=== PATIENT | male | born 1985 | race Caucasian/White ===

== ENCOUNTER 2018-06-01 05:45 | Observation (INO) | payer OTHER ==
[2018-06-01] MEDS ORDERED: CEFAZOLIN 1 GM INJ (07:00)
[2018-06-01] MEDS ORDERED: GLYCOPYRROLATE 0.4 MG INJ (07:00)
[2018-06-01] MEDS ORDERED: NEOSTIGMINE 3 MG/3 ML SYRINGE (07:00)
[2018-06-01] MEDS ORDERED: ROCURONIUM 50 MG INJ (07:56)
[2018-06-01] MEDS ORDERED: LIDOCAINE 100 MG SYRINGE (07:56)
[2018-06-01] MEDS ORDERED: PHENYLephrine (100 MCG/ML) 5ML SYG (07:56)
[2018-06-01] MEDS ORDERED: MIDAZOLAM 1 MG/ML 2 ML INJ (07:56)
[2018-06-01] MEDS ORDERED: PROPOFOL 100 ML (07:56)
[2018-06-01] MEDS ORDERED: DEXAMETHASONE 4 MG/ML 1 ML INJ (07:56)
[2018-06-01] MEDS ORDERED: ONDANSETRON 4 MG INJ (07:56)
[2018-06-01] MEDS ORDERED: FENTAnyl 50 MCG/ML VIAL (07:56)
[2018-06-01] MEDS ORDERED: MEPERIDINE 25 MG INJ IV (08:00)
[2018-06-01] MEDS ORDERED: OXYCODONE/ACETAMINOPHEN (5/325) TAB PO (08:00)
[2018-06-01] MEDS: CLINDAMYCIN 900 MG/D5W (PMX) 50 ML IVPB (08:00)
[2018-06-01] MEDS ORDERED: FENTAnyl 50 MCG/ML VIAL IV ×3 (08:00)
[2018-06-01] MEDS ORDERED: HYDROmorphONE 1 MG/5 ML IV SYRINGE IV (08:00)
[2018-06-01] MEDS ORDERED: EPHEDrine SULFATE 50 MG/5 ML SYG IV (08:00)
[2018-06-01] MEDS ORDERED: MIDAZOLAM 1 MG/ML 2 ML INJ IV (08:00)
[2018-06-01] MEDS ORDERED: ALBUTEROL 0.083% (NEB) 2.5 MG/3 ML AMP HHN (08:00)
[2018-06-01] MEDS ORDERED: LABETALOL HCL 20MG INJ IV (08:00)
[2018-06-01] MEDS ORDERED: TRIMETHOBENZAMIDE 100 MG/ML VIAL IM (08:00)
[2018-06-01] MEDS ORDERED: DIPHENHYDRAMINE 50 MG INJ IV (08:00)
[2018-06-01] MEDS ORDERED: hydrALAzine 20 MG INJ IV (08:00)
[2018-06-01] MEDS ORDERED: IPRATROPIUM (NEB) 0.5 MG/2.5 ML AMP HHN (08:00)
[2018-06-01] MEDS ORDERED: ALBUMIN HUMAN 5% 250 ML (08:51)
[2018-06-01] MEDS: HEMOSTATIC MATRIX SYG ZFS ×2 (09:15→10:47)
[2018-06-01] MEDS ORDERED: NACL 0.9% 3 ML SYG IV (10:30)
[2018-06-01] MEDS ORDERED: HYDROCODONE/APAP (5/325) TAB PO (10:30)
[2018-06-01] MEDS ORDERED: PROCHLORPERAZINE 10 MG TAB PO (10:30)
[2018-06-01] MEDS ORDERED: NALOXONE (0.4 MG/ML) INJ IV (10:30)
[2018-06-01] MEDS: BETAMET NA PHOS/AC(6 MG/ML) 5ML INJ (10:47)
[2018-06-01] MEDS: POLYMYXIN/BACITRACIN 1L IRRIG (10:47)
[2018-06-01] MEDS: THROMBIN 5000 UNIT VIAL (10:47)
[2018-06-01] MEDS: BUPIVACAINE 0.25%/EPI (SDV) 10 ML INJ (10:47)
[2018-06-01] MEDS: GELATIN SIZE 100 SPONGE (10:47)
[2018-06-01] MEDS: HYDROmorphONE 1 MG/5 ML IV SYRINGE IV ×3 (11:12→11:50)
[2018-06-01] MEDS: ONDANSETRON 4 MG INJ IV ×2 (11:13→18:03)
[2018-06-01] MEDS: OXYCODONE/ACETAMINOPHEN (5/325) TAB PO (11:29)
[2018-06-01] MEDS: HYDROmorphONE 0.5 MG/0.5 ML SYG IV (18:50)
[2018-06-01] MEDS: HYDROCODONE/APAP (5/325) TAB PO (21:17)
[2018-06-02] MEDS: HYDROCODONE/APAP (5/325) TAB PO ×2 (08:48→13:23)
[2018-06-02] MEDS: ONDANSETRON 4 MG INJ IV (11:55)
[2018-06-02] MEDS ORDERED: MAGNESIUM HYDROXIDE 30ML CUP PO (18:00)
[2018-06-02] MEDS ORDERED: DEXAMETHASONE 10 MG/ML 1 ML INJ IV (18:00)
[2018-06-02] MEDS: HYDROmorphONE 0.5 MG/0.5 ML SYG IV (19:35)
[2018-06-02] MEDS: DOCUSATE SODIUM 100 MG CAP PO (21:30)
[2018-06-03] MEDS: DOCUSATE SODIUM 100 MG CAP PO (08:40)
[2018-06-03] MEDS: HYDROCODONE/APAP (5/325) TAB PO (12:15)
[2018-06-03] MEDS: ONDANSETRON 4 MG INJ IV (12:15)
== END 2018-06-03 13:15 | disposition home or self-care (01) ==
LOC: SDS 05:45 → REC 10:22 → MS1 14:59
DX: M51.17 Intervertebral disc disorders with radiculopathy, lumbosacral region (principal)
CPT/HCPCS: 63030; 72100; 88304; 97116; 97161; 97530